=== PATIENT | female | born 1965 | race African-American/Black ===

== ENCOUNTER 2019-01-07 14:19 | Inpatient (IN) | payer BC ==
[2019-01-07] MEDS ORDERED: Bupivacaine HCl 0.5%/Epinephrine 1:200,000/PF 30 ml Vial ONE (14:38)
[2019-01-07] MEDS ORDERED: Sodium Chloride 0.9% 0 ML ONE (14:38)
[2019-01-07] MEDS ORDERED: Thrombin 5000 UNITS/5 ML VIAL ONE (14:40)
[2019-01-07] MEDS ORDERED: Fentanyl 100 MCG/2 ML VIAL ONE (14:44)
[2019-01-07] MEDS ORDERED: PHENYLEPHRINE-NS 100 MCG/ML 10 ML SYRINGE ONE (14:46)
[2019-01-07] MEDS ORDERED: PROPOFOL 200 MG/20 ML VIAL ONE (14:46)
[2019-01-07] MEDS ORDERED: Metoprolol Tartrate 5 MG/5 ML VIAL ONE (14:46)
[2019-01-07] MEDS ORDERED: Glycopyrrolate 0.2 MG/ML 5 ML SYRINGE ONE (14:46)
[2019-01-07] MEDS ORDERED: Esmolol 100 MG/10 ML VIAL ONE (14:46)
[2019-01-07] MEDS ORDERED: Ondansetron PF 4 MG/2 ML Vial ONE (14:46)
[2019-01-07] MEDS ORDERED: Lidocaine 1% PF 5 ML VIAL ONE (14:46)
[2019-01-07] MEDS ORDERED: Rocuronium Bromide 10 MG/ML (10ML VIAL) ONE (14:46)
[2019-01-07] MEDS ORDERED: Labetalol HCl 100 MG/20 ML VIAL ONE (14:46)
[2019-01-07] MEDS ORDERED: Calcium Chloride 1 GM/10 ML Abboject SYRINGE ONE (14:46)
[2019-01-07] MEDS ORDERED: SUGAMMADEX SODIUM 200 MG/2 ML VIAL ONE (15:21)
--- NOTE | 2019-01-07 15:39 | PRG ---
DATE OF SERVICE: 01/07/2019 Ms. Boyd is a pleasant 53-year-old female who we evaluated last week at [facility]. She had sustained an L2 burst fracture as a result of an accident. She had anticipated axial back pain, but was neurologically intact throughout her stay. She had other endplate irregularities suggestive of mild compression fractures as well, all of which contributed to her back pain. The management plan was bracing with disposition to inpatient rehab. She went to inpatient rehab at the end of last week. Dr. Jain notified me today that on his exam, Ms. Boyd had developed weakness in the left lower extremity. This prompted a repeat CT examination, which overall shows no significant changes compared to the one performed at [facility]. She continues to have a burst fracture at L2 with retropulsion. She does have a change in her normal kyphosis, which is unchanged as compared to her prior CT exam. She does have high-grade central canal stenosis as well. On my examination of her, she does have new findings, which were not present before. Specifically, she has weakness of on the left lower extremity with respect to dorsiflexion and activation of the quadriceps muscles. She has strong plantarflexion. She has knee flexion with appropriate activation of hamstring muscles. She has some pain limiting movement at the hip, but does have motion there. On her right side, she has a grossly normal movement. Her sensation is intact throughout both lower extremities. She appears to have normal bowel and bladder function as well. Given the change in her neurologic exam, I have advocated for decompression and stabilization. I had a lengthy conversation with her and her daughter, and they understand the indication for moving forward with surgery at this point in time. Risks, benefits, and alternatives were discussed with the patient, and an informed consent was provided. Job ID: [id number] [facility]
[2019-01-07] MEDS ORDERED: Albumin 5% 500 ML ONE (17:13)
[2019-01-07] MEDS ORDERED: Mag-Al 1200 mg/1200 mg/30 ML UDCUP PO PRN (18:23)
[2019-01-07] MEDS ORDERED: Morphine 2 MG/ML SYRINGE SLOW IVP PRN (18:23)
[2019-01-07] MEDS ORDERED: diphenhydrAMINE 50 MG/ML VIAL IVP PRN (18:23)
[2019-01-07] MEDS ORDERED: Bisacodyl 10 MG SUPP PR PRN (18:23)
[2019-01-07] MEDS ORDERED: Acetaminophen 325 MG TAB PO PRN (18:23)
[2019-01-07] MEDS ORDERED: Ondansetron PF 4 MG/2 ML Vial IVP PRN (18:23)
[2019-01-07] MEDS ORDERED: Ondansetron HCl/PF 4 MG/2 ML Vial IVP PRN (18:37)
[2019-01-07] MEDS ORDERED: Promethazine HCl 25 MG/ML VIAL IM PRN (18:37)
[2019-01-07] MEDS ORDERED: Promethazine HCl 25 MG/ML VIAL SLOW IVP PRN (18:37)
[2019-01-07] MEDS: CEFAZOLIN 2 GM in Premix Bag 1 BAG IVPB SCH (21:51)
[2019-01-07] MEDS: Sodium Chloride 0.9% 1,000 ML IV SCH (21:56)
[2019-01-07 22:08] VITALS: BMI 36.0
--- NOTE | 2019-01-08 00:04 | OP ---
DATE OF PROCEDURE: 01/07/2019 CENTRIFUGAL DRIER OPERATOR: Ranulfo Remy PA-C INDICATION: Prevent neurologic decline, lumbar burst fracture, pain and numbness. PROCEDURES PERFORMED: Lumbar decompression, lumbar fusion, open reduction, placement of allograft arthrodesis, posterolateral instrumented fusion spanning L1-L3. DESCRIPTION OF PROCEDURE: The patient was brought into the operating room and placed under general anesthesia. She was flipped from the supine to prone position on the operating room table. A linear incision was planned spanning L1 through L3. After prepping and draping and after an appropriate operative pause, the incision was created. The soft tissues were swept away from midline. Self-retaining retractors were placed. After confirming the appropriate level with C-arm fluoroscopy, the L2 segment was decompressed to include the inferior aspect of L1 and superior aspect of L3. There was no evidence for traumatic spinal fluid leak. We then directed our attention to the pedicles at L1 and L3 where laminotomies were performed over those pedicles to adequately expose them. With the aid of C-arm fluoroscopy, pedicle screws were placed bilaterally at L1 and L3. We obtained AP and lateral x-rays. An attempt was made to obtain an intraoperative 3D CT scan, but we could not get the machine to span to do so. Placement, however, seemed to be quite good just based on AP and lateral films. Rods were then placed across the screw heads and final tightened. A cross-link was placed across the armando. Allograft and autograft materials were then placed within the lateral confines of the instrumentation construct. A subfascial drain was placed and brought out through a separate puncture site from within the skin. The wound was then irrigated. Hemostasis was maintained throughout. The wound was then closed in anatomic layers and a pressure dressing was applied. There were no known procedural complications. Job ID: [id number]
[2019-01-08] MEDS: HYDROcodone/Acetaminophen 7.5/325 mg Tablet PO PRN ×3 (03:58→19:00)
[2019-01-08] MEDS: CEFAZOLIN 2 GM in Premix Bag 1 BAG IVPB SCH ×3 (05:39→21:23)
[2019-01-08 06:10] LABS: #Eosinphils 0.1 thou/uL (0.0-0.7); #Lymphocytes 1.3 thou/uL (1.20-3.40); #Monocytes 0.5 thou/uL (0.11-0.59); #Neutrophils 7.7 thou/uL (1.40-6.50); %Basophils 0.2 % (0.0-1.0); %Eosinophils 1.2 % (0.0-10.0); %Lymphocytes 13.4 % (21.0-51.0); %Monocytes 5.6 % (0.0-10.0); %Neutrophils 79.6 % (42.0-75.0); Hemoglobin 9.2 g/dL (12.0-16.0); Mean Corpuscular HGB CONC 32.8 g/dL (32.0-36.0); Mean Corpuscular Hemoglobin 28.2 pg (27.0-31.0); Mean Platelet Volume 7.7 fL (7.4-10.4); Platelet Count 290 thou/uL (130-400); RBC Distribution Width 11.4 % (11.5-14.5); Red Blood Cell (RBC) Count 3.26 mill/uL (4.20-5.40); White Blood Cell (WBC) Count 9.7 thou/uL (4.8-10.8)
[2019-01-08 06:15] LABS: Anion Gap 13 mmol/L (10-20); BUN (Urea Nitrogen) 17 mg/dL (9.8-20.1); Calc. Creatinine Clearance 118 mL/min (70-130); Calcium 9.5 mg/dL (7.8-10.44); Carbon Dioxide 24 mmol/L (22-29); Chloride 106 mmol/L (98-107); Estimated GFR-MDRD 64; Glucose 98 mg/dL (70-105); Potassium 4.3 mmol/L (3.5-5.1); Sodium 139 mmol/L (136-145)
--- NOTE | 2019-01-08 09:32 | PRG ---
DATE OF SERVICE: 01/08/2019 Ms. Boyd is postop day #1, following lumbar decompression and fusion from L1 through L3. Her pain levels well controlled today. She is resting comfortably in the bed. Her lower extremity function in her left lower extremity has improved marginally from examination standpoint, however from her thought subjectively she feels that it is much better. She also has better sensation, which she states was an issue before and the right hip pain that she was having last week in the hospital has also improved significantly. She has had about 120 mL out of the ANN drain overnight, so we will leave that in the remainder of the day. She will need a lower extremity ultrasound this morning and we will need to continue to monitor both drain output and this ultrasound results to determine when to restart her Lovenox. We will continue to hold that for now. She will need to work with PT and OT today. I will reach out to our rehab PA's on to engage readmission over to [facility] and then we will go from there. Otherwise, I feel she looks excellent this morning. She and her feel the same. Job ID: [id number]
--- NOTE | 2019-01-08 10:37 | ULT ---
EXAM: Bilateral lower extremity venous ultrasound HISTORY: Immobile patient, over 72 hour COMPARISON: None TECHNIQUE: Multiplanar grayscale and color Doppler images were obtained in a bilateral lower extremit y venous ultrasound. Spectral analysis of the Doppler waveforms were performed. FINDINGS: The bilateral common femoral vein, profunda femoral veins, superficial femoral veins, and p opliteal veins are normal in appearance without visible thrombus. These vessels demonstrate normal compression, flow, and augmentation. The bilateral posterior tibial veins, profunda femoral veins and greater saphenous veins are patent w ithout evidence of DVT. IMPRESSION: No evidence of DVT in the left or right lower extremity.
[2019-01-08] MEDS: Sodium Chloride 0.9% 1,000 ML IV SCH ×2 (11:02→21:19)
[2019-01-09] MEDS: CEFAZOLIN 2 GM in Premix Bag 1 BAG IVPB SCH ×3 (05:21→21:09)
[2019-01-09] MEDS: HYDROcodone/Acetaminophen 7.5/325 mg Tablet PO PRN ×4 (05:32→18:19)
--- NOTE | 2019-01-09 08:55 | PRG ---
DATE OF SERVICE: 01/09/2019 SUBJECTIVE: Ms. Boyd is now 2 days status post a lumbar fusion for L2 burst fracture in the setting of new onset of weakness. She is doing well. She is in the bed this morning with her brace on. She looks much more comfortable and reports dramatically improved pain. Neurologically, there has been a slight improvement in her exam as well as she does have some dorsiflexion movement of the left foot. She has more robust firing of the quad muscle, which she had not done before surgery either. She reports no radicular pain at this time. The lower extremity ultrasound that was performed yesterday is negative for a DVT. PLAN: The plan will be aggressive mobilization. She does have a drain in place , which we will remove either later today or tomorrow. At any time, from my perspective, she can transition back to inpatient rehab as she will need that for her recovery. Today, I would like to get her up, out of the bed, into a chair at a minimum. Job ID: [id number] MTDD
[2019-01-09] MEDS: Sodium Chloride 0.9% 1,000 ML IV SCH (10:19)
[2019-01-10] MEDS: Sodium Chloride 0.9% 1,000 ML IV SCH ×2 (00:50→11:37)
[2019-01-10] MEDS: HYDROcodone/Acetaminophen 7.5/325 mg Tablet PO PRN ×5 (04:00→21:42)
[2019-01-10] MEDS: CEFAZOLIN 2 GM in Premix Bag 1 BAG IVPB SCH ×2 (06:10→14:57)
--- NOTE | 2019-01-10 09:33 | PRG ---
DATE OF SERVICE: 01/10/2019 Ms. Boyd is now postop day 3 following urgent lumbar decompression and fusion. She still has considerable left lower extremity weakness, but her pain has been much better controlled. She did sit up at the edge of the bed yesterday with physical therapy and did quite well with that. She has a lot of anxiety about increasing her pain level as when the pushed her some in inpatient rehab, she had a lot more pain and resulted in this re-admission. We are currently working on placement with [facility]. We will depend on Case Management for further instructions here. I will reach out to them this morning to see if there is anything that we can help with to help push this along. Her drain only put out 40 over the last 12 hours, so we will go ahead and remove that as well. Job ID: [id number]
[2019-01-11] MEDS: Sodium Chloride 0.9% 1,000 ML IV SCH ×2 (01:49→18:23)
[2019-01-11] MEDS: HYDROcodone/Acetaminophen 7.5/325 mg Tablet PO PRN ×4 (03:51→21:08)
--- NOTE | 2019-01-11 07:25 | PRG ---
DATE OF SERVICE: 01/11/2019 Ms. Boyd is on her fourth day after lumbar fusion and we are awaiting placement. She sat up at the bedside for 15 minutes of physical therapy and tolerated this quite well yesterday and is very pleased with that. Apparently, she has already spoken to the facility in [facility] that she will be going to, we are just waiting for the insurance approval. We will follow up with Case Management today and hopefully we can get her out before the weekend. Job ID: [id number]
--- NOTE | 2019-01-11 11:23 | PRG ---
DATE OF SERVICE: 01/11/2019 Ms. Boyd continues to recover from her lumbar fusion from burst fracture. She is making slow, but certain progress. Her pain is dramatically improved. She has been slow in mobilizing, requiring encouragement to do so. She can be transferred to the inpatient rehab facility at any point in time. Job ID: [id number]
[2019-01-11] MEDS: Cyclobenzaprine 10 MG TAB PO PRN (14:08)
[2019-01-12] MEDS: Sodium Chloride 0.9% 1,000 ML IV SCH ×2 (06:11→19:38)
--- NOTE | 2019-01-12 09:26 | PRG ---
DATE OF SERVICE: 01/12/2019 SUBJECTIVE: The patient is a 53-year-old female, who is postoperative day #5, status post stabilization for her L2 burst fracture, L1-L3 fusion. She is continuing to make progress but is mobilizing rather slowly. She has no acute neurologic change or complaints during our visit. OBJECTIVE: On my exam, this morning, patient is awake, alert, in no acute distress. She has free active range of motion of all extremities. She has maybe slightly decreased strength in the legs but at 4+/5. No incisional issues. At this point, the patient remains ready for rehab at any point in time. I will touch base with Case Management and see where we are along in the process. Job ID: [id number]
[2019-01-12] MEDS: HYDROcodone/Acetaminophen 7.5/325 mg Tablet PO PRN ×2 (11:00→19:30)
--- NOTE | 2019-01-12 16:18 | PRG ---
DATE OF SERVICE: 01/12/2019 Mrs. Boyd is resting comfortably in bed. She feels she has more strength in the left leg. We are awaiting rehab. Job ID: [id number]
[2019-01-12] MEDS: Cyclobenzaprine 10 MG TAB PO PRN (19:30)
[2019-01-13] MEDS: HYDROcodone/Acetaminophen 7.5/325 mg Tablet PO PRN ×3 (03:32→20:55)
[2019-01-13] MEDS: Cyclobenzaprine 10 MG TAB PO PRN ×2 (03:32→20:55)
[2019-01-13] MEDS: Enoxaparin Sodium 40 MG/0.4 ML SYRINGE SC SCH (08:45)
--- NOTE | 2019-01-13 10:03 | PRG ---
DATE OF SERVICE: 01/13/2019 The patient is postoperative day #6, status post stabilization of her L2 burst fracture. She has had no overnight events. She continues to be significantly slow to mobilize. She did not work with Physical therapy yesterday because she was having some discomfort in her back. On exam this morning, the patient is sitting comfortably. She is in no acute distress. She is very strong in her feet, but somewhat weak with flexion of the knees at 4-/5. This appears unchanged from prior exam. She has had no incisional issues. The patient continues to be slow to mobilize. I checked with Case Management, they anticipate transfer to rehab on Monday or Monday. Job ID: [id number]
[2019-01-13] MEDS: Sodium Chloride 0.9% 1,000 ML IV SCH ×2 (10:31→21:41)
[2019-01-14] MEDS: Enoxaparin Sodium 40 MG/0.4 ML SYRINGE SC SCH (08:24)
[2019-01-14] MEDS: Sodium Chloride 0.9% 1,000 ML IV SCH (17:05)
[2019-01-14] MEDS: HYDROcodone/Acetaminophen 7.5/325 mg Tablet PO PRN (17:07)
[2019-01-14] MEDS: Cyclobenzaprine 10 MG TAB PO PRN (21:03)
[2019-01-15] MEDS: Sodium Chloride 0.9% 1,000 ML IV SCH ×2 (01:25→14:05)
--- NOTE | 2019-01-15 08:55 | PRG ---
DATE OF SERVICE: 01/15/2019 Ms. Boyd is now on the 8th day of her hospital stay and one week status post lumbar fusion and overall, feels like she is doing well. Her motor function is certainly improved immensely since the last time I saw her last week, and she is sitting up on the bed without any assistance. Her pain is much better controlled. Unfortunately, she does have some bilateral buttock sores that are being attended to. Most recent notes from Case Management appeared to be hopeful that she may be able to go to [facility] today. We will follow up on this with Case Management later this morning. Job ID: [id number]
[2019-01-15] MEDS: Enoxaparin Sodium 40 MG/0.4 ML SYRINGE SC SCH (09:36)
[2019-01-15 11:20] VITALS: BP 116/77; TEMP 98.3
[2019-01-15] MEDS: HYDROcodone/Acetaminophen 7.5/325 mg Tablet PO PRN (13:01)
--- NOTE | 2019-01-15 17:18 | PQF ---
CLINICAL DOCUMENTATION IMPROVEMENT CLARIFICATION FORM: ICD-10 Updated PLEASE DO AN ADDENDUM TO THE PROGRESS NOTE WITH ANY DOCUMENTATION UPDATES OR ADDITIONS AND CARRY THROUGH TO DC SUMMARY. THANK YOU. DATE: 01/15/2019 ATTN: Ranuflo ABURTO Please exercise your independent, professional judgment in responding to the clarification form. Clinical indicators are provided on the bottom of this form for your review Please check appropriate box(s): [ x ] I (concur) with the Nursing Assessment findings as stated below. [ ] Pressure Ulcer: (Stage I: Erythema; Stage II: Partial thickness; Stage III : Full thickness; Stage IV: Necrosis to muscle/bone) [ ] Location: POA: [ ] Yes [ ] No[ ] Unable to determine Stage (I to IV): __(Left___Right__Bilateral__N/A__) [ ] Location: POA: [ ] Yes [ ] No[ ] Unable to determine Stage (I to IV): __(Left____Right__Bilateral_N/A__) [ ] No pressure ulcer diagnosis [ ] Other diagnosis [ ] Unable to determine In addition, please specify: Present on Admission (POA): [ ] Yes [ x ] No [ ] Unable to determine For continuity of documentation, please document condition throughout progress notes and discharge summary. Thank You. CLINICAL INDICATORS - SIGNS / SYMPTOMS / LABS / RESULTS AND LOCATION IN MR Nursing Skin Admit Assessment 01/07 2035: no documentation of pressure ulcer. Nursing Assessment 01/10 123: Left buttock Pressure Ulcer. Stage II 01/15 (Jonel) she does have some bilateral buttock sores that are being attended to. RISKS: OP Note 01/07: Lumbar decompression, lumbar fusion, open reduction , placement of allograft arthrodesis, posterolateral instrumented fusion spanning L1-L3 pn 01/13: The pt continues to be slow to mobilize. TREATMENT: Nursing Assessment 01/[address] Order 01/14: Wound care eval/treat. Pre-ulcer skin changes limited to persistent focal edema (Stage 1) Abrasion, blister, partial thickness skin loss involving epidermis and/or dermis (Stage 2) Full thickness skin loss involving damage or necrosis of SQ tissue. (Stage 3) Necrosis of soft tissue through to underlying muscle, tendon, or bone. (Stage 4) Purple or maroon discolored skin or blood filled blister PRESSURE ULCER STAGES Stage I: Erythema Stage II: Partial thickness Stage III: Full thickness Stage IV: Necrosis to muscle/bone Thank you, Karena (This form is maintained as a part of the permanent medical record) 2015 [employer] All Rights Reserved Karena Viveros RN, BSN [email or web address] Office: [phone] [facility] CENTERLuc[facility]
== END 2019-01-15 14:45 | DRG 460 ==
LOC: ERS 14:19 → SDC 14:51 → SURG B 18:22
PROVIDERS: ADMIT Neurological Surgery; ATTEND Neurological Surgery
PROC: 0SG1071 Fusion of 2 or more Lumbar Vertebral Joints with Autologous Tissue Substitute, Posterior Approach, Posterior Column, Open Approach (ICD-10-PCS; principal; 2019-01-07)
PROC: 01NB0ZZ Release Lumbar Nerve, Open Approach (ICD-10-PCS; 2019-01-07)
DX: S32.021A Stable burst fracture of second lumbar vertebra, initial encounter for closed fracture (principal); M48.061 Spinal stenosis, lumbar region without neurogenic claudication; L89.322 Pressure ulcer of left buttock, stage 2; Z88.8 Allergy status to other drugs, medicaments and biological substances; V49.9XXA Car occupant (driver) (passenger) injured in unspecified traffic accident, initial encounter
CPT/HCPCS: 36415; 72100; 76000; 80048; 85025; 93970; C1713; J0670; J0690; J1650; J2001; J2270; J2405; J2704; J3010; J3490; P9045

== ENCOUNTER 2019-04-11 12:37 | Outpatient (CLI) | payer BC ==
--- NOTE | 2019-04-11 14:27 | RAD ---
LUMBAR SPINE 2 VIEWS: HISTORY: Thoracolumbar fracture. COMPARISON: CT, 01/07/2019. FINDINGS: Severe burst fracture with marked vertical height loss of L2 vertebral body stabilized with pedicle s crews and prior laminectomy changes with prominent superior retropulsion. There is also some minimal vertical height loss in the anterior superior aspect of T12. IMPRESSION: Severe burst fracture with marked vertical height loss of L2 with some retropulsion. Postop laminect maria e and pedicle screw placement and stabilization changes of L2. Vertical height loss of the superio r end plate of T12. POS: OFF
== END 2019-04-11 12:38 | disposition home or self-care (01) ==
LOC: TBSIIMAG 12:37
PROVIDERS: ATTEND Neurological Surgery
DX: S32.021D Stable burst fracture of second lumbar vertebra, subsequent encounter for fracture with routine healing (principal); M51.86 Other intervertebral disc disorders, lumbar region; Z98.890 Other specified postprocedural states
CPT/HCPCS: 72100

== ENCOUNTER 2019-06-04 09:52 | Outpatient (CLI) | payer BC, OTHER ==
--- NOTE | 2019-06-04 10:31 | RAD ---
TWO VIEWS OF THE LUMBAR SPINE: DATE: 06/04/2019. COMPARISON: 04/11/2019. HISTORY: Traumatic fracture of the lumbar spine status post surgical repair. FINDINGS: Two-view examination of the lumbar spine demonstrate bilateral L1 and L3 pedicle screws with vertical ly and horizontally oriented interlocking rods. This hardware traverses/treats a burst fracture with severe loss of vertebral body height at the L2 level. The degree of retropulsion and the degree of vertebral body height loss does not appear significantly changed when compared to the 04/11/2019 exam. There is no radiographic evidence for hardware failure. There is lower lumbar spine facet hypertro phy. No acute fracture or dislocation. Postsurgical clips are noted in the right upper quadrant of the abdomen. IMPRESSION: Burst fracture with severe loss of vertebral body height at L2 status post surgical fixation posterio rly as described above. POS: ZOEY
== END 2019-06-04 09:53 | disposition home or self-care (01) ==
LOC: TBSIIMAG 09:52
PROVIDERS: ATTEND Neurological Surgery
DX: S32.021D Stable burst fracture of second lumbar vertebra, subsequent encounter for fracture with routine healing (principal); S22.009D Unspecified fracture of unspecified thoracic vertebra, subsequent encounter for fracture with routine healing; Z98.890 Other specified postprocedural states
CPT/HCPCS: 72100